=== PATIENT | male | born 2000 | race Two or more races ===

== ENCOUNTER 2019-02-19 17:10 | Emergency (ER) | payer SELFPAY ==
[2019-02-19] MEDS ORDERED: Ketorolac 60 MG/2 ML SDV IM ONE (17:28)
--- NOTE | 2019-02-19 17:30 | EDM.PDOC ---
ED HPI GENERAL MEDICAL PROBLEM - General Chief Complaint: ENT Problem Stated Complaint: SORE THROAT Time Seen by Provider: 02/19/19 17:11 Source of Information: Reports: Patient History Limitations: Reports: No Limitations - History of Present Illness INITIAL COMMENTS - FREE TEXT/NARRATIVE: History of present illness: []Patient has had a sore throat for a week is not improving or worsening. He has fevers at night is having difficulty swallowing but denies any shortness of breath. Review of systems: As per history of present illness and below otherwise all systems reviewed and negative. Past medical history: As per history of present illness and as reviewed below otherwise noncontributory. Surgical history: As per history of present illness and as reviewed below otherwise noncontributory. Social history: No reported history of drug or alcohol abuse. Family history: As per history of present illness and as reviewed below otherwise noncontributory. Physical exam: General: Well developed, well nourished in NAD HEENT: Atraumatic, normocephalic, pupils reactive, negative for conjunctival pallor or scleral icterus, mucous membranes moist, throat symmetrical posterior pharynx, erythema with edema, neck supple, nontender, trachea midline. No stridor Lungs: Clear to auscultation, breath sounds equal bilaterally, chest nontender. Heart: S1S2, regular, negative for clicks, rubs, or JVD. Abdomen: NABS, Soft, nondistended, nontender. Negative for masses or hepatosplenomegaly. Negative for costovertebral tenderness. Pelvis: Stable nontender. Genitourinary: Deferred. Rectal: Deferred. Extremities: Atraumatic, negative for cords or calf pain. Neurovascular unremarkable. Neuro: Awake, alert, oriented. Cranial nerves II through XII unremarkable. Cerebellum unremarkable. Motor and sensory unremarkable throughout. Exam nonfocal. Skin:warm and dry Diagnostics: Rapid strep- positive Therapeutics: Toradol ED Course: Stable Impression: Strep pharyngitis Prescriptions: Medrol Dosepak Amoxicillin Plan: Home Definitive disposition and diagnosis as appropriate pending reevaluation and review of above. throat Pain Score (Numeric/FACES): 4 - Related Data Allergies Allergy/AdvReac Type Severity Reaction Status Date / Time No Known Allergies Allergy Verified 02/19/19 17:23 Home Meds: Home Meds Amoxicillin 500 mg PO TID #21 capsule 02/19/19 [Rx] methylPREDNISolone [Medrol] 4 mg PO ASDIRECTED #1 dosepk 02/19/19 [Rx] Past Medical History - Past Health History Medical/Surgical History: Denies Medical/Surgical History Social & Family History - Family History Family Medical History: Noncontributory - Tobacco Use Smoking Status *Q: Never Smoker - Recreational Drug Use Recreational Drug Use: No ED ROS ENT - Review of Systems Review Of Systems: ROS reveals no pertinent complaints other than HPI. ED EXAM, ENT - Physical Exam Exam: See Below (The history of present illness) Course - Vital Signs Last Recorded V/S: Last Vital Signs Temp 97.5 F 02/19/19 17:23 Pulse 93 02/19/19 17:23 Resp 18 02/19/19 17:23 BP 127/70 02/19/19 17:23 Pulse Ox 95 02/19/19 17:23 - Orders/Labs/Meds Meds: Medications Discontinued Medications Generic Name Dose Route Start Last Admin Trade Name Freq PRN Reason Stop Dose Admin Ketorolac Tromethamine 60 mg 02/19/19 17:28 02/19/19 17:36 Toradol IM 02/19/19 17:29 60 mg ONETIME ONE Administration Departure - Departure Time of Disposition: 18:06 Disposition: Home, Self-Care 01 Condition: Good Clinical Impression: Strep pharyngitis - Discharge Information *PRESCRIPTION DRUG MONITORING PROGRAM REVIEWED*: No *COPY OF PRESCRIPTION DRUG MONITORING REPORT IN PATIENT SEEMA: No Prescriptions: Amoxicillin 500 mg PO TID #21 capsule methylPREDNISolone [Medrol] 4 mg PO ASDIRECTED #1 dosepk Referrals: PCP,Unknown [Primary Care Provider] - Forms: ED Department Discharge Additional Instructions: The following information is given to patients seen in the emergency department who are being discharged to home. This information is to outline your options for follow-up care. We provide all patients seen in our emergency department with a follow-up referral. The need for follow-up, as well as the timing and circumstances, are variable depending upon the specifics of your emergency department visit. If you don't have a primary care physician on staff, we will provide you with a referral. We always advise you to contact your personal physician following an emergency department visit to inform them of the circumstance of the visit and for follow-up with them and/or the need for any referrals to a consulting specialist. The emergency department will also refer you to a specialist when appropriate. This referral assures that you have the opportunity for follow-up care with a specialist. All of these measure are taken in an effort to provide you with optimal care, which includes your follow-up. Under all circumstances we always encourage you to contact your private physician who remains a resource for coordinating your care. When calling for follow-up care, please make the office aware that this follow-up is from your recent emergency room visit. If for any reason you are refused follow-up, please contact the [facility] Emergency Department at and asked to speak to the emergency department charge nurse. Take meds as directed, follow up with your primary care physician, return to ER if symptoms worsen or change. [facility] Primary [facility] [place] [id number]
== END 2019-02-19 18:29 | disposition home or self-care (01) ==
LOC: MW.ED 17:10
DX: J02.0 Streptococcal pharyngitis (principal)
CPT/HCPCS: 87880; 96372; 99283; J1885

== ENCOUNTER 2020-07-18 16:04 | Emergency (ER) | payer SELFPAY ==
[2020-07-18] MEDS ORDERED: Ibuprofen 600 MG Tab PO ONE (16:35)
--- NOTE | 2020-07-18 16:37 | EDM.PDOC ---
ED HPI GENERAL MEDICAL PROBLEM - General Chief Complaint: Fever Stated Complaint: FLU Time Seen by Provider: 07/18/20 16:34 Source of Information: Reports: Patient History Limitations: Reports: No Limitations - History of Present Illness INITIAL COMMENTS - FREE TEXT/NARRATIVE: 20-year-old male no significant past medical history presents for fever x2 days. Fever has been on and off, he has been taking Tylenol. He notes body aches, shortness of breath, chest tightness, sore throat. He denies abdominal pain, nausea vomiting, difficulty breathing, cough. Genreralized Pain Score (Numeric/FACES): 4 - Related Data Allergies Allergy/AdvReac Type Severity Reaction Status Date / Time No Known Allergies Allergy Verified 07/18/20 16:22 Home Meds: Home Meds . [No Known Home Meds] 07/18/20 [History] Past Medical History - Past Health History Medical/Surgical History: Denies Medical/Surgical History Social & Family History - Family History Family Medical History: Noncontributory - Tobacco Use Tobacco Use Status *Q: Never Tobacco User - Caffeine Use Caffeine Use: Reports: None - Recreational Drug Use Recreational Drug Use: No ED ROS GENERAL - Review of Systems Review Of Systems: Comprehensive ROS is negative, except as noted in HPI. ED EXAM, GENERAL - Physical Exam Exam: See Below Exam Limited By: No Limitations General Appearance: Alert, WD/WN, No Apparent Distress Nose: Normal Inspection Throat/Mouth: Normal Voice, No Airway Compromise, Other (b/l erythema and prominence of tonsils L>R without uveula shift or airway compromise) Head: Atraumatic, Normocephalic Neck: Normal Inspection, Supple, Non-Tender Respiratory/Chest: No Respiratory Distress, Lungs Clear, Normal Breath Sounds, No Accessory Muscle Use Cardiovascular: Normal Peripheral Pulses, Regular Rate, Rhythm Extremities: Normal Inspection Neurological: Alert, Normal Gait Psychiatric: Normal Affect, Normal Mood Skin Exam: Warm, Dry, Intact, Normal Color Course - Vital Signs Last Recorded V/S: Last Vital Signs Temp 98.8 F 07/18/20 16:18 Pulse 100 07/18/20 16:18 Resp 18 07/18/20 16:18 BP 108/60 07/18/20 16:18 Pulse Ox 96 07/18/20 16:18 - Orders/Labs/Meds Orders: Active Orders 24 hr Category Date Time Status Chest 1V Frontal [CR] Stat Exams 07/18/20 17:36 Taken CULTURE STREP A CONFIRMATION [RM] Stat Lab 07/18/20 16:58 Results STREP SCRN A RAPID W CULT CONF [RM] Stat Lab 07/18/20 16:58 Results Isolation [COMM] Routine Oth 07/18/20 16:35 Active Labs: Laboratory Tests 07/18/20 Range/Units 16:50 SARS-CoV-2 RNA (TERESA) POSITIVE H (NEGATIVE) Meds: Medications Discontinued Medications Generic Name Dose Route Start Last Admin Trade Name Rachid PRN Reason Stop Dose Admin Ibuprofen 600 mg 07/18/20 16:35 07/18/20 16:52 Motrin PO 07/18/20 16:36 600 mg ONETIME ONE Administration - Re-Assessments/Exams Free Text/Narrative Re-Assessment/Exam: 07/18/20 16:37 Patient presents with nonspecific symptoms suggestive of influenza or Covid. Considering oropharynx exam, will also get strep testing. We will follow up results and disposition accordingly. 07/18/20 17:20 Rapid strep is negative, will follow up Covid and influenza testing. 07/18/20 18:14 Wet read chest x-ray unremarkable. COVID-19 testing is positive. Will discharge patient with return precautions and educational handout. Will give work note for 10 days for quarantine. Departure - Departure Time of Disposition: 18:14 Disposition: Home, Self-Care 01 Condition: Good Clinical Impression: COVID-19 - Discharge Information Instructions: COVID-19 Frequently Asked Questions, Prevent the Spread of COVID- 19 if You Are Sick - CDC, COVID-19 Referrals: PCP,None [Primary Care Provider] - Forms: ED Department Discharge Additional Instructions: The following information is given to patients seen in the emergency department who are being discharged to home. This information is to outline your options for follow-up care. We provide all patients seen in our emergency department with a follow-up referral. The need for follow-up, as well as the timing and circumstances, are variable d epending upon the specifics of your emergency department visit. If you don't have a primary care physician on staff, we will provide you with a referral. We always advise you to contact your personal physician following an emergency department visit to inform them of the circumstance of the visit and for follow-up with them and/or the need for any referrals to a consulting specialist. The emergency department will also refer you to a specialist when appropriate. This referral assures that you have the opportunity for follow-up care with a specialist. All of these measure are taken in an effort to provide you with optimal care, which includes your follow-up. Under all circumstances we always encourage you to contact your private physician who remains a resource for coordinating your care. When calling for follow-up care, please make the office aware that this follow-up is from your recent emergency room visit. If for any reason you are refused follow-up, please contact the [facility] Emergency Department at and asked to speak to the emergency department charge nurse. Please follow up with your primary care physician. If you do not have a primary care physician, see below: [facility] Primary Care [address] [place] [id number] [facility] [address] [place] [id number] Sepsis Event Note (ED) - Evaluation Sepsis Screening Result: No Definite Risk - Focused Exam Vital Signs: Vital Signs Temp Pulse Resp BP Pulse Ox 07/18/20 16:18 98.8 F 100 18 108/60 96 - My Orders Last 24 Hours: My Active Orders 07/18/20 16:35 Isolation [COMM] Routine 07/18/20 16:58 CULTURE STREP A CONFIRMATION [RM] Stat STREP SCRN A RAPID W CULT CONF [RM] Stat 07/18/20 17:36 Chest 1V Frontal [CR] Stat - Assessment/Plan Last 24 Hours: My Active Orders 07/18/20 16:35 Isolation [COMM] Routine 07/18/20 16:58 CULTURE STREP A CONFIRMATION [RM] Stat STREP SCRN A RAPID W CULT CONF [RM] Stat 07/18/20 17:36 Chest 1V Frontal [CR] Stat
--- NOTE | 2020-07-18 18:21 | CR ---
Indication: Girard virus like symptoms Comparison: None available. Technique: Single AP view chest Findings: There is no focal consolidation, effusion, or pneumothorax. The cardiomediastinal silhouette is within normal limits. The bony thorax is grossly intact. Impression: No acute cardiopulmonary abnormality. Dictated by Prieto Berry MD @ Jul 18 2020 6:17PM Signed by Dr. Prieto Berry @ Jul 18 2020 6:18PM
== END 2020-07-18 18:24 | disposition home or self-care (01) ==
LOC: MW.ED 16:04
DX: U07.1 COVID-19 (principal)
CPT/HCPCS: 71045; 87081; 87635; 87804; 87880; 99283; A9270; U0002

== ENCOUNTER 2021-05-28 20:54 | Emergency (ER) | payer SELFPAY ==
[2021-05-28] MEDS ORDERED: Amoxicillin/Clavulanate K 875-125 MG Tab PO ONE (21:13)
--- NOTE | 2021-05-28 21:16 | EDM.PDOC ---
ED HPI GENERAL MEDICAL PROBLEM - General Chief Complaint: ENT Problem Stated Complaint: LT EAR PAIN Time Seen by Provider: 05/28/21 21:10 Source of Information: Reports: Patient History Limitations: Reports: No Limitations - History of Present Illness INITIAL COMMENTS - FREE TEXT/NARRATIVE: HISTORY AND PHYSICAL: History of present illness: Patient is a 20-year-old male who presents to the emergency room with complaints of left ear pain intermittently over the past 3 weeks. Denies any injury or trauma. No ear drainage noted. Patient denies any fever, chills, headache, ellen nge in vision, syncope or near syncope. Denies any chest pain, back pain, shortness of breath or cough. Denies any GI or symptoms. Patient has been eating and drinking appropriately. Review of systems: As per history of present illness and below otherwise all systems reviewed and negative. Past medical history: As per history of present illness and as reviewed below otherwise noncontributor y. Surgical history: As per history of present illness and as reviewed below otherwise noncontributory. Social history: See social history for further information Family history: As per history of present illness and as reviewed below otherwise noncontributory. Physical exam: General: Well developed and well nourished. Alert and orientated x 3. Nontoxic in appearance and in no acute distress. Vital signs are stable and have been reviewed by me. Nursing notes were reviewed. HEENT: Atraumatic, normocephalic, pupils equal and reactive bilaterally, negative for conjunctival pallor or scleral icterus, mucous membranes moist, right TMs normal, left TM erythematous with dull light reflex. Throat clear, neck supple, nontender, trachea midline. No drooling or trismus noted. No meningeal signs. No hot potato voice noted. Lungs: Clear to auscultation bilaterally. Normal work of breathing, no accessory muscles used. Heart: S1S2, regular rate and rhythm Skin: Intact, warm, dry. No lesions or rashes noted. Hematologic: No petechiae or purpra. Mucosa appropriate color and normal nail bed color and refill. Extremities: Atraumatic, moves all extremities per self without difficulty or deficits, negative for cords or calf pain. Neurovascular unremarkable. Neuro: Awake, alert, oriented. Cranial nerves II through XII unremarkable. Cerebellum unremarkable. Motor and sensory unremarkable throughout. Exam nonfocal. Psychiatric: Mood and affect are appropriate. Normal thought process. Answering questions appropriately. Please note that the patient was seen and evaluated during the 2019 SARS-CoV-2 novel coronavirus pandemic period. Community viral transmission is ongoing at time of this encounter and the emergency department is operating under pandemic response procedures. Medical Decision Making: We will treat with antibiotics. Encouraged him to follow-up with ENT if pain does not resolve. I have talked with the patient about today's findings, in addition to providing specific details for plan of care. Reassessment at the time of disposition demonstrates that the patient is in no acute distress. The patient is stable for discharge, counseling was provided and we discussed in great detail signs and symptoms that would prompt them to return to the Emergency Department. Medication, follow up and supportive care measures were reviewed and discussed. Voices understanding and is agreeable to plan of care. Denies any further questions or concerns at this time. Diagnostics: None Therapeutics: Augmentin Prescription: Augmentin Impression: Otitis media, left Plan: 1. You were evaluated today on an emergent basis. Please take the antibiotic as prescribed. 2. You can alternate Tylenol and ibuprofen as needed for pain and fever management. 3. We encourage you to follow up with your primary care provider and/or recommended specialist in the next few days for re-evaluation and further care/management. 4. If your symptoms should worsen, new symptoms develop or any of the signs and symptoms we discussed should arise please return to the emergency room or call 911 (if needed). Definitive disposition and diagnosis as appropriate pending reevaluation and rev iew of above. - Related Data Allergies Allergy/AdvReac Type Severity Reaction Status Date / Time No Known Allergies Allergy Verified 07/18/20 16:22 Home Meds: Home Meds Amoxicillin/Clavulanate K [Augmentin 875-125 MG] 1 tab PO BID 7 Days #14 tablet 05/28/21 [Rx] Past Medical History - Past Health History Medical/Surgical History: Denies Medical/Surgical History Social & Family History - Family History Family Medical History: No Pertinent Family History - Caffeine Use Caffeine Use: Reports: None ED ROS ENT - Review of Systems Review Of Systems: Comprehensive ROS is negative, except as noted in HPI. ED EXAM, ENT - Physical Exam Exam: See Below (See dictation) Course - Orders/Labs/Meds Orders: Active Orders 24 hr Category Date Time Status Amoxicillin/Clavulanate K [Augmentin 875 MG/125 MG] Med 05/28/21 21:13 Once 1 tab PO ONETIME ONE Medication Orders Amoxicillin/Clavulanate Potassium (Amoxicillin/Clavulanate K 875-125 Mg Tab) 1 tab PO ONETIME ONE Stop: 05/28/21 21:14 Meds: Medications Generic Name Dose Route Start Last Admin Trade Name Rachid PRN Reason Stop Dose Admin Amoxicillin/Clavulanate Potassium 1 tab 05/28/21 21:13 Amoxicillin/Clavulanate K 875-125 Mg Tab PO 05/28/21 21:14 ONETIME ONE Departure - Departure Time of Disposition: 21:16 Disposition: Home, Self-Care 01 Clinical Impression: Otitis media Qualifiers: Otitis media type: suppurative Chronicity: acute Laterality: left Recurrence: non-recurrent Spontaneous tympanic membrane rupture: without spontaneous rupture Qualified Code(s): H66.002 - Acute suppurative otitis media without spontaneous rupture of ear drum, left ear - Discharge Information Prescriptions: Amoxicillin/Clavulanate K [Augmentin 875-125 MG] 1 tab PO BID 7 Days #14 tablet Instructions: Otitis Media, Adult, [id number] Referrals: PCP,None [Primary Care Provider] - Additional Instructions: The following information is given to patients seen in the emergency department who are being discharged to home. This information is to outline your options for follow-up care. We provide all patients seen in our emergency department with a follow-up referral. The need for follow-up, as well as the timing and circumstances, are variable depending upon the specifics of your emergency department visit. If you don't have a primary care physician on staff, we will provide you with a referral. We always advise you to contact your personal physician following an emergency department visit to inform them of the circumstance of the visit and for follow-up with them and/or the need for any referrals to a consulting specialist. The emergency department will also refer you to a specialist when appropriate. This referral assures that you have the opportunity for follow-up care with a specialist. All of these measure are taken in an effort to provide you with optimal care, which includes your follow-up. Under all circumstances we always encourage you to contact your private physician who remains a resource for coordinating your care. When calling for follow-up care, please make the office aware that this follow-up is from your recent emergency room visit. If for any reason you are refused follow-up, please contact the [facility] Emergency Department at and asked to speak to the emergency department charge nurse. [facility] Primary [facility] [address] [place] [address] [facility] [address] [place] [phone] Thank you for choosing the [facility] emergency department in [place] for your medical needs today. It was a pleasure caring for you. Today you were seen in the emergency department for ear infection. 1. You were evaluated today on an emergent basis. Please take the antibiotic as prescribed. 2. You can alternate Tylenol and ibuprofen as needed for pain and fever management. 3. We encourage you to follow up with your primary care provider and/or recommended specialist in the next few days for re-evaluation and further care/management. 4. If your symptoms should worsen, new symptoms develop or any of the signs and symptoms we discussed should arise please return to the emergency room or call 911 (if needed). - My Orders Last 24 Hours: My Active Orders 05/28/21 21:13 Amoxicillin/Clavulanate K [Augmentin 875 MG/125 MG] 1 tab PO ONETIME ONE - Assessment/Plan Last 24 Hours: My Active Orders 05/28/21 21:13 Amoxicillin/Clavulanate K [Augmentin 875 MG/125 MG] 1 tab PO ONETIME ONE
== END 2021-05-28 21:21 | disposition home or self-care (01) ==
LOC: MW.ED 20:54
DX: H66.002 Acute suppurative otitis media without spontaneous rupture of ear drum, left ear (principal)
CPT/HCPCS: 99282; A9270

== ENCOUNTER 2021-10-05 20:44 | Emergency (ER) | payer SELFPAY | END 2021-10-05 21:40 | disposition home or self-care (01) | LOC: MW.ED 20:44 | DX: H66.005 Acute suppurative otitis media without spontaneous rupture of ear drum, recurrent, left ear (principal) | CPT/HCPCS: 99282 ==

== ENCOUNTER 2022-11-03 08:48 | Emergency (ER) | payer SELFPAY ==
[2022-11-03] MEDS ORDERED: Prochlorperazine 10 MG/2 ML SDV IVPUSH ONE (09:05)
[2022-11-03] MEDS ORDERED: Lactated Ringers 2,000 ML IV ONE (09:05)
[2022-11-03] MEDS ORDERED: Morphine 4 MG/ML Syringe IVPUSH ONE (09:05)
[2022-11-03] MEDS ORDERED: Sodium Chloride 0.9% 10 ML Syringe FLUSH PRN (09:05)
[2022-11-03] MEDS ORDERED: Ketorolac 30 MG/ML SDV IVPUSH ONE (09:05)
[2022-11-03] MEDS ORDERED: Sodium Chloride 0.9% 2.5 ML Syringe FLUSH PRN (09:05)
[2022-11-03] MEDS ORDERED: Dexamethasone 10 MG/ML SDV IVPUSH ONE (09:05)
[2022-11-03 09:41] LABS: CARBON DIOXIDE,CO2 28.8 mmol/L (21.0-32.0); POTASSIUM,K 3.6 mmol/L (3.5-5.1)
[2022-11-03] MEDS ORDERED: Penicillin G Benzathine 1,200,000 Units/2 ML Syringe IM ONE (10:09)
== END 2022-11-03 10:48 | disposition home or self-care (01) ==
LOC: MW.ED 08:48
DX: J02.0 Streptococcal pharyngitis (principal); Z86.16 Personal history of COVID-19
CPT/HCPCS: 80053; 85025; 86308; 87651; 96361; 96372; 96374; 96375; 99284; J0561; J0780; J1100; J1885; J3490; J7120

== ENCOUNTER 2024-03-21 10:37 | Emergency (ER) | payer BC | END 2024-03-21 11:54 | disposition home or self-care (01) | LOC: MW.ED 10:37 | DX: S70.01XA Contusion of right hip, initial encounter (principal); Z75.8 Other problems related to medical facilities and other health care; X58.XXXA Exposure to other specified factors, initial encounter | CPT/HCPCS: 99283 ==